=== PATIENT | female | born 1960 | race Caucasian/White ===

== ENCOUNTER 2019-01-19 19:45 | Inpatient (IN) | payer BC ==
[~2019-01-19] VITALS: Ht 162.6 cm; Wt 58.1 kg
[2019-01-25] MEDS ORDERED: LEVAQUIN750 MG PO (15:51)
[2019-01-25] MEDS ORDERED: FLAGYL500MG PO (15:52)
[2019-01-25] MEDS ORDERED: FLORANEX TABLE1 EACH PO (15:52)
[2019-01-25] MEDS ORDERED: PROTONIX40 MG PO (15:53)
[2019-01-25] MEDS ORDERED: PEPCID AC20 MG PO ×2 (15:54)
[2019-01-25] MEDS ORDERED: ZOFRAN8 MG PO (16:30)
== END 2019-01-25 17:14 | disposition home or self-care (01) | DRG 392 ==
LOC: ER 19:45 → SEC-K 23:23 → MEDI 01-20 00:42 → MEDJ 01-20 01:42
PROVIDERS: ADMIT Internal Medicine
PROC: BW21ZZZ Computerized Tomography (CT Scan) of Abdomen and Pelvis (ICD-10-PCS; principal; 2019-01-19)
PROC: 4A033R1 Measurement of Arterial Saturation, Peripheral, Percutaneous Approach (ICD-10-PCS; 2019-01-21)
DX: K57.32 Diverticulitis of large intestine without perforation or abscess without bleeding (principal); K58.8 Other irritable bowel syndrome; F43.22 Adjustment disorder with anxiety; R76.8 Other specified abnormal immunological findings in serum